=== PATIENT | female | born 2000 | race Caucasian/White ===

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

== ENCOUNTER 2022-01-01 12:24 | Outpatient (CLI) | payer BC, SELFPAY ==
--- NOTE | 2022-01-01 12:32 | XR_ITS ---
WS: [id number] KUB, AP view, 01/01/2022 Clinical Data: RECURRENT KIDNEY STONES Comparison: KUB, 06/28/2021. Findings: No abnormal intraabdominal masses or calcifications are seen. There is no dilatated small bowel or ev idence of obstruction. Fecal material and colon gas obscure detail over both kidneys. XR/XR KUB [id number] Impression: Negative KUB.
== END 2022-01-01 12:25 | disposition home or self-care (01) ==
LOC: RAD 12:29
PROVIDERS: PCP Family Medicine; Visit Provider Urology
DX: N20.0 Calculus of kidney (principal)
CPT/HCPCS: 74018; 81003

== ENCOUNTER → 2022-07-12 12:25 | Outpatient (BNVA) | payer BC, SELFPAY | PROVIDERS: PCP Family Medicine; Visit Provider Family Medicine | DX: N64.3 Galactorrhea not associated with childbirth (principal) | CPT/HCPCS: 84146 ==

== ENCOUNTER → 2022-09-10 13:23 | Outpatient (BNVA) | payer OTHER, SELFPAY | PROVIDERS: PCP Family Medicine; Visit Provider Nurse Practitioner | DX: F41.1 Generalized anxiety disorder (principal) | CPT/HCPCS: 80061; 83036 ==

== ENCOUNTER 2022-10-13 11:46 | Emergency (ER) | payer BC, MEDICAID, SELFPAY ==
[2022-09-25 09:38] VITALS: BP 130/78; BMI 35.7
[2022-10-13 11:50] VITALS: BP 120/70; PULSE 82; RESP 24; TEMP 36.4; O2SAT 100
[2022-10-13 14:14] VITALS: BP 140/80; PULSE 64; RESP 14; O2SAT 98
--- NOTE | 2022-10-13 14:25 | ED_ITS ---
HPI - Abdominal Pain General: Chief Complaint: Abdominal Pain Stated Complaint: Left side pain Time Seen by Provider: 10/13/22 14:25 History of Present Illness: Hortensia Sauceda is a 22-year-old female presenting to the emergency department due to left sided abdominal pain. Onset of symptoms was approximately 3 hours ago and acute without known specific provoking factor. Describes it as sharp and stabbing. Unrelenting and severe. 1 episode associated nausea and vomiting likely secondary to pain. Reports this location feels somewhat different than prior kidney stones. No history of requiring operative intervention for kidney stone. No other specific changes in health, exacerbating, or alleviating factors identified. Onset (ago): hour(s) Pain Consistency: constant Location: LUQ and L flank Severity: severe Quality: stabbing and sharp Radiation: none Migration to: no migration Exacerbating factors: nothing Relieving factors: nothing Associated Symptoms: Reports nausea and vomiting Related Data: Date of Last Menstrual Period: 10/15/21 (Has really irregular and sporadic periods) Review of Systems General: Reports: 10 or more systems reviewed and unremarkable except in HPI and below GI: Reports: nausea and vomiting PFSH ED PFSH: Medical History Generalized anxiety disorder Major depressive disorder, recurrent, moderate No pertinent past medical history Post-traumatic stress disorder, unspecified Psychiatric care Recurrent UTI Urolithiasis Multi stone former. Surgical History No pertinent past surgical history Family History Father Diabetes Hypertension Lung disease Sister PCOS (polycystic ovarian syndrome) Social History Smoking and tobacco status: current every day smoker cigarettes Packs smoked per day: 5 Years cigarettes smoked: 2 and e-cigarettes E-Cigarette Details: with nicotine E-cig/vape details: takes a month to go through a pod Quit status (tobacco): not considering quitting Second hand smoke exposure: Yes Alcohol intake: current Alcohol intake frequency: few times a month Alcohol type: hard liquor Adopted: No Caregiver/support person: No Lives independently: Yes Household members: significant other and family Housing: House Marital status: Single Number of children: 0 Highest education level completed: 12th Grade, No Diploma service: No Current occupational status: unemployed Current occupational exposures/hazards: No Pets and animals: Yes Pets & animals: cat(s) and dog(s) History of recent travel: No Leisure activites: art, music, reading and other Leisure activities details: social media Sexually active: Yes Current gender identity: Genderqueer- Neither Male or Female Shelby/Christianity: Roman Special shelby needs: No Agree to transfusion: Yes Financial difficulty paying for basics: Hard Female Reproductive History: Date of last menstrual period: 10/15/21 (Has really irregular and sporadic periods) Spontaneous abortions: No Physical Exam Const: COMMON NORMALS: alert GENERAL APPEARANCE: cooperative, well developed and in distress (due to pain) HENMT: COMMON NORMALS: normocephalic and atraumatic HEAD & SCALP: normocephalic and atraumatic THROAT: posterior oropharynx normal Eye: COMMON NORMALS: conjunctivae normal CONJUNCTIVA: Yes conjunctivae norm al SCLERA: sclerae normal Neck/C-Spine: COMMON NORMALS: supple GENERAL: Yes trachea midline Resp: COMMON NORMALS: clear to auscultation bilaterally EFFORT & INSPECTION: Yes able to speak in complete sentences AUSCULTATION: clear to auscultation bilaterally Cardio: COMMON NORMALS: regular rate and regular rhythm RATE: regular rate RHYTHM: regular rhythm GI: COMMON NORMALS: Soft to palpation PALPATION: Yes Soft to palpation, Yes Tenderness to palpation present (GI), No Guarding due to palpation present (GI) and No Rigid due to palpation Extremity: GENERAL: Yes normal exam except as noted and No edema Neuro: COMMON NORMALS: moves all extremities SENSORIUM/ORIENTATION: Yes alert and No Orientation impaired Psych: COMMON NORMALS: mental status grossly normal and Normal thought process present THOUGHT PROCESS: Normal thought process present Course Vital Signs: Vital signs: Vital Signs Temperature 97.6 F 10/13/22 11:50 Pulse Rate 64 10/13/22 14:14 Respiratory Rate 14 10/13/22 14:14 Blood Pressure 124/72 10/13/22 17:30 Pulse Oximetry 98 10/13/22 14:14 Oxygen Delivery Me thod 10/13/22 14:14 MDM - Abdominal Pain Medical Decision Making 22-year-old female presenting to the emergency department with left-sided pain which was acute in onset. Nontoxic on exam however uncomfortable due to pain. No significant hematologic abnormality. Metabolic panel with mild dehydration likely. Urinalysis out evidence of infection, hematuria is present. Initially started imaging with ultrasound which only shows mild left pelviectasis and calyceal lithiasis. Upon reassessment patient continued to ovalle ve discomfort and therefore CT ordered after discussion of risk benefits. CT shows mild left hydronephrosis with perinephric edema and 4 mm calculus in the region of the UPJ. During ED course patient treated with fluids, morphine, Flomax, Zofran with improvement. Oxycodone ordered as well. Patient symptoms improved upon discharge. Most likely cause of patient symptoms is ureterolithiasis. Plan to have follow- up with urology. The results of ED evaluation were discussed with the patient including prescriptions and/or symptomatic cares (if applicable) including appropriate and responsible use, followup plan, and return precautions. The patient verbalized understanding and felt safe for discharge. Medical Records I reviewed the patient's medical records. Lab Data I reviewed the patient's lab results. 10/13/22 15:15 10/13/22 15:15 Labs/Radiology: Radiology Impressions Renal Ultrasound 10/13/22 15:28 IMPRESSION: 1. Mild left pelvicaliectasis. 2. Left renal calyceal lithiasis. Abdomen/Pelvis CT 10/13/22 16:34 IMPRESSION: 1. Mild left-sided hydronephrosis and perinephric edema, secondary to a 4 mm calculus in the region of the UPJ. 2. Additional findings, as above. Laboratory Results WBC 11.9 10^3/uL (4.5-13.0) 10/13/22 15:15 RBC 4.98 10^6/uL (4.1-5.3) 10/13/22 15:15 Hgb 14.0 g/dL (11.5-15.3) 10/13/22 15:15 Hct 41.1 % (37.0-47.0) 10/13/22 15:15 MCV 82.5 fl (81-99) 10/13/22 15:15 MCH 28.1 pg (28.0-34.0) 10/13/22 15:15 MCHC 34.1 g/dL (30.0-36.0) 10/13/22 15:15 RDW 13.5 % (12.1-15.1) 10/13/22 15:15 Plt Count 377 10^3/cmm (130-400) 10/13/22 15:15 MPV 8.8 fL (7.4-10.4) 10/13/22 15:15 Neut % (Auto) 85.0 % 10/13/22 15:15 Lymph % (Auto) 9.3 % 10/13/22 15:15 [place] % (Auto) 5.0 % 10/13/22 15:15 Eos % (Auto) 0.2 % 10/13/22 15:15 Baso % (Auto) 0.2 % 10/13/22 15:15 Neut # (Auto) 10.11 10^3/uL (1.8-8.0) H 10/13/22 15:15 Lymph # (Auto) 1.1 10^3/uL (1.5-6.5) L 10/13/22 15:15 [place] # (Auto) 0.6 10^3/uL (0.2-0.9) 10/13/22 15:15 Eos # (Auto) 0.0 10^3/uL (0.0-0.8) 10/13/22 15:15 Baso # (Auto) 0.0 10^3/uL (0.0-0.1) 10/13/22 15:15 Nucleated RBC % (auto) 0 % 10/13/22 15:15 Nucleated RBCs # 0.0 /100WBC 10/13/22 15:15 Sodium 128 mmol/L (136-145) L 10/13/22 15:15 Potassium 3.6 mmol/L (3.5-5.1) 10/13/22 15:15 Chloride 96 mmol/L (98-107) L 10/13/22 15:15 Carbon Dioxide 21 mmol/L (22-29) L 10/13/22 15:15 Anion Gap 14.6 (5-19) 10/13/22 15:15 BUN 11 mg/dL (6-20) 10/13/22 15:15 Creatinine 0.9 mg/dL (0.5-0.9) 10/13/22 15:15 GFR Calculation 79.8 mL/min (90-130) L 10/13/22 15:15 Glucose 112 mg/dL (65-115) 10/13/22 15:15 Calculated Osmolality 266 mOsm/kg (285-295) L 10/13/22 15:15 Calcium 9.3 mg/dL (8.5-10.5) 10/13/22 15:15 Total Bilirubin 0.2 mg/dL (0.15-1.2) 10/13/22 15:15 AST 18 U/L (0-32) 10/13/22 15:15 ALT 18 U/L (0-33) 10/13/22 15:15 Alkaline Phosphatase 134 U/L (35-105) H 10/13/22 15:15 Total Protein 8.1 g/dL (6.6-8.7) 10/13/22 15:15 Albumin 4.5 g/dL (3.5-5.2) 10/13/22 15:15 Globulin 3.6 g/dL (1.3-4.6) 10/13/22 15:15 Lipase 29 U/L (13-60) 10/13/22 15:15 HCG, Qual Negative (Negative) 10/13/22 14:37 Urine Color Yellow (Yellow) 10/13/22 14:37 Urine Appearance Hazy (CLEAR) A 10/13/22 14:37 Urine pH 5 (5-7) 10/13/22 14:37 Ur Specific Moro 1.025 (1.005-1.030) 10/13/22 14:37 Urine Protein 2+ (Negative) H 10/13/22 14:37 Urine Glucose (UA) Norm (Normal) 10/13/22 14:37 Urine Ketones 1+ (Negative) H 10/13/22 14:37 Urine Blood 3+ (Negative) H 10/13/22 14:37 Urine Nitrate Negative (Negative) 10/13/22 14:37 Urine Bilirubin Neg (Negative) 10/13/22 14:37 Urine Urobilinogen Neg mg/dL (Negative) 10/13/22 14:37 Ur Leukocyte Esterase Trace (Negative) H 10/13/22 14:37 Urine RBC >100 /hpf (0-2) H 10/13/22 14:37 Urine WBC None /hpf (0-5) 10/13/22 14:37 Ur Squamous Epith Cells 0-4 /hpf (0-5) H 10/13/22 14:37 Amorphous Sediment Not Reportable 10/13/22 14:37 Urine Bacteria None /hpf (NONE) 10/13/22 14:37 Urine Yeast 2+ /hpf H 10/13/22 14:37 Discharge Plan Discharge Patient Disposition: Home Clinical Impression: Ureterolithiasis Condition: Stable Prescriptions: New ondansetron 4 mg tablet,disintegrating 4 mg PO Q8H PRN (Reason: nausea and vomiting) Qty: 15 0RF oxycodone 5 mg tablet 5 mg PO Q4H PRN (Reason: pain) Qty: 10 0RF tamsulosin [Flomax] 0.4 mg capsule 0.4 mg PO Q24H Qty: 30 0RF No Action hydroxyzine pamoate 25 mg capsule 50 mg PO Q6H PRN (Reason: Anxiety) 30 Days Qty: 120 2RF fluoxetine 20 mg capsule 20 mg PO DAILY 30 Days Qty: 30 2RF buspirone 10 mg tablet 15 mg PO BID 30 Days Qty: 90 2RF acetaminophen [Tylenol] 325 mg capsule 325 mg PO QID PRN (Reason: Pain) Discharge Orders: Discharge ED (Routine); Ordered 10/13/22 Ordered By: Jaime Rowe Referrals: Loretta Paredes FNP [Primary Care Provider] - Discharge Diet: Usual diet Discharge Activity: Increase activity as tolerated Patient Instructions: Tamsulosin (By mouth), Ureteral Stones (ED), Opioid Safety, Pain Management Activity Restrictions/Additional Instructions: Thank you for visiting the emergency department. You were seen and evaluated for abdominal pain. The likely cause of the symptoms is a 4 mm stone in the region of the left ureteropelvic junction. This will be treated with pain medication, will also prescribe antinausea medication, and Flomax to increase likelihood of passage. You may use [id number] medications such as acetaminophen and ibuprofen for pain however please do not exceed the daily recommended dosage as listed on the packaging and please keep in mind that many namebrand medications contain the same active ingredients. Please follow-up with urology. Return to the emergency department for uncontrolled symptoms, fevers, infectious symptoms, or anything else that you are concerned about a feel needs emergency department evaluation. Coding Level of Care Code ED Religion Department Chair for Maxine Marrufo
[2022-10-13 15:11] LABS: HCG Qualitative Urine. Negative (Negative)
[2022-10-13 15:12] LABS: Add Urine Microscopic? YES; Bilirubin Urine Neg (Negative); Blood Urine 3+ (Negative); Glucose Urine UA Norm (Normal); Ketones Urine 1+ (Negative); Leukocyte Esterase Urine Trace (Negative); Nitrate Urine Negative (Negative); Protein Urine 2+ (Negative); Specific Gravity, Urine 1.025 (1.005-1.030); Urine Appearance Hazy (CLEAR); Urine Color Yellow (Yellow); Urobilinogen Urine Neg (Negative); pH Urine 5 (5-7)
[2022-10-13 15:24] LABS: Basophils % 0.2 %; Eosinophils % 0.2 %; Hematocrit 41.1 % (37.0-47.0); Lymphocytes # 1.1 10^3/uL (1.5-6.5); Lymphocytes % 9.3 %; Mean Corpuscular HGB Conc 34.1 g/dL (30.0-36.0); Mean Corpuscular Hemoglobin 28.1 pg (28.0-34.0); Mean Corpuscular Volume 82.5 fl (81-99); Mean Platelet Volume 8.8 fL (7.4-10.4); Monocytes # 0.6 10^3/uL (0.2-0.9); Neutrophils # 10.11 10^3/uL (1.8-8.0); Nucleated Red Blood Cells % 0 %; Platelet Count 377 10^3/cmm (130-400); Red Blood Count 4.98 10^6/uL (4.1-5.3); Red Cell Distribution Width 13.5 % (12.1-15.1); White Blood Count 11.9 10^3/uL (4.5-13.0)
--- NOTE | 2022-10-13 15:28 | USR_ITS ---
PROCEDURE INFORMATION: Exam: US Retroperitoneal Complete, Kidneys Aorta IVC. Exam date and time: 10/13/2022 3:56 PM Age: 22 years old Clinical indication: Abdominal pain; Flank; Left upper quadrant (luq); Additional info: L flank pain, hematuria TECHNIQUE: Imaging protocol: Real-time ultrasound of the retroperitoneum with image documentation. Complete exam. COMPARISON: CT abdomen pelvis wo con [id number] 05/09/2018 7:27 AM FINDINGS: Right kidney: The right kidney measures 9.4 x 4.2 x 4.6 cm. Unremarkable. A brief color Doppler examination of the right kidney was performed showing normal color shifts. Left kidney: Mild left renal pelvicaliectasis. Left renal echogenic reflectors suggesting calyceal lithiasis. The left kidney measures 9.9 x 5.4 x 5.3 cm. A brief color Doppler examination of the left kidney was performed showing normal color shifts. Aorta: The mid abdominal aorta measures 1.5 cm. No aneurysm as visualized. Common iliac arteries: Not imaged. Inferior vena cava: Unremarkable as visualized (midportion). US/US renal BI* [id number] IMPRESSION: 1. Mild left pelvicaliectasis. 2. Left renal calyceal lithiasis.
[2022-10-13 15:31] LABS: Add Urine Culture? Yes; RBC Urine >100 /hpf (0-2); Squamous Epithelial Cell Urine 0-4 /hpf (0-5)
[2022-10-13] MEDS: morphine 4 mg/mL SDV 1 mL IVP ×2 (15:39→17:22)
[2022-10-13] MEDS: sodium chloride 0.9% 1,000 ML 999 ML IV (15:39)
[2022-10-13] MEDS: ondansetron 2 mg/ML SDV 2 mL 4 MG IVP (15:43)
[2022-10-13 15:46] LABS: Alanine Aminotransferase 18 U/L (0-33); Albumin Level 4.5 g/dL (3.5-5.2); Alkaline Phosphatase 134 U/L (35-105); Anion Gap 14.6 (5-19); Aspartate Amino Transferase 18 U/L (0-32); Blood Urea Nitrogen 11 mg/dL (6-20); Calcium 9.3 mg/dL (8.5-10.5); Carbon Dioxide 21 mmol/L (22-29); Chloride 96 mmol/L (98-107); Globulin 3.6 g/dL (1.3-4.6); Glomerular Filtration Rate 79.8 mL/min (90-130); Glucose 112 mg/dL (65-115); Lipase 29 U/L (13-60); Osmolality Calculated 266 mOsm/kg (285-295); Potassium 3.6 mmol/L (3.5-5.1); Sodium 128 mmol/L (136-145); Total Bilirubin 0.2 mg/dL (0.15-1.2); Total Protein 8.1 g/dL (6.6-8.7)
[2022-10-13 16:12] VITALS: BP 142/83
[2022-10-13 16:30] VITALS: BP 138/84
--- NOTE | 2022-10-13 16:34 | CTR_ITS ---
PROCEDURE INFORMATION: Exam: CT Abdomen And Pelvis Without Contrast Exam date and time: 10/13/2022 4:40 PM Age: 22 years old Clinical indication: Abdominal pain; Flank; Left; Additional info: L flank pain, hematuria TECHNIQUE: Imaging protocol: Computed tomography of the abdomen and pelvis without contrast. Axial, coronal and sagittal reformatted images were created and reviewed. Radiation optimization: All CT scans at this facility use at least one of these dose optimization techniques: automated exposure control; mA and/or kV adjustment per patient size (includes targeted exams where dose is matched to clinical indication); or iterative reconstruction. COMPARISON: CT kidney stone [id number] 11/03/2018 11:00 PM RADIATION DOSE METRICS: Total DLP (mGy-cm): 776.94 FINDINGS: Tubes, catheters and devices: Pessary in place. Liver: Unremarkable. Gallbladder and bile ducts: No radiodense gallstones. No biliary ductal dilatation. Pancreas: Unremarkable. Spleen: Unremarkable. Adrenal glands: Normal. No mass. Kidneys and ureters: Mild left-sided hydronephrosis and perinephric edema, secondary to a 4 mm calculus in the region of the UPJ (axial image 95 and coronal image 67). Nonobstructing bilateral renal calculi. Stomach and bowel: No bowel wall thickening. No obstruction. No pneumatosis. Appendix: Normal. Intraperitoneal space: Trace nonspecific free pelvic fluid, likely physiologic. No organized fluid collection. No free air. Vasculature: Unremarkable. No aneurysm. Lymph nodes: No pathologically enlarged lymph nodes. Urinary bladder: Unremarkable as visualized. Reproductive: Unremarkable. Bones/joints: No acute osseous abnormality. Soft tissues: Unremarkable. CT/CT kidney stone [id number] IMPRESSION: 1. Mild left-sided hydronephrosis and perinephric edema, secondary to a 4 mm calculus in the region of the UPJ. 2. Additional findings, as above.
[2022-10-13 17:00] VITALS: BP 140/60
[2022-10-13] MEDS: tamsulosin 0.4 mg Capsule PO (17:22)
[2022-10-13 17:30] VITALS: BP 124/72
== END 2022-10-13 17:30 | disposition home or self-care (01) ==
PROVIDERS: Emergency Provider Emergency Medicine; PCP Nurse Practitioner Family
DX: N20.1 Calculus of ureter (principal)
CPT/HCPCS: 74176; 76770; 80053; 81001; 81025; 83690; 85025; 87086; 96361; 96374; 96375; 96376; 99285; J2270; J2405; J7030

== ENCOUNTER 2022-10-21 06:53 | Outpatient (CLI) | payer BC, SELFPAY ==
[2022-09-25 09:38] VITALS: BP 130/78; BMI 35.7
--- NOTE | 2022-10-21 07:16 | XR_ITS ---
WS: [id number] EXAMINATION: XR KUB [id number] HISTORY: abdominal pain ORDER DATE: 10/21/2022 7:17 AM FINDINGS/IMPRESSION: There is a nonspecific colonic gas pattern with scattered fecal content and gas. There is no sign of significant small bowel dilation. No pathologic abdominal calcification is seen. No changes noted c ompared with the prior exam.
== END 2022-10-21 06:54 | disposition home or self-care (01) ==
PROVIDERS: PCP Nurse Practitioner Family; Visit Provider Urology
DX: N20.0 Calculus of kidney (principal); N39.0 Urinary tract infection, site not specified
CPT/HCPCS: 74018; 81003

== ENCOUNTER 2022-10-23 07:01 | Day surgery (SDC) | payer BC, SELFPAY ==
[2022-09-25 09:38] VITALS: BP 130/78; BMI 35.7
[2022-10-22 12:52] VITALS: BMI 34.7
[2022-10-23] VITALS (7 sets, daily range): BP systolic 101–141; BP diastolic 61–93; PULSE 56–105; RESP 16–18; TEMP 36.3–36.7; O2SAT 96–100
--- NOTE | 2022-10-23 06:03 | P.HPUD_ITS ---
Surgery/Procedure H&P Update DATE OF PROCEDURE: October 23, 2022 DATE H&P PERFORMED: 10/21/22 H&P UPDATE INFORMATION: I have reviewed H&P completed within last 30 days, I have examined patient prior to procedure, No changes to prior documentation and H&P is in [facility] EMR on date indicated CHANGES TO PREVIOUS DOCUMENTATION: KUB shows the stone in roughly the same position as it was previously. Reviewed with the mother and the patient important details for this procedure. They want to proceed as scheduled PLANNED PROCEDURE: Operation Date: 10/23/22 08:35 Proposed Procedures p Cystoscopy, Left: Retrograde, ureteroscopy, laser, stent. [id number], [id number], 78962 modifier 26 N20.2(Not Applicable) - Guille Rosenthal MD s Retrograde Pyelogram(Left) - MD effie Wright Ureteroscopy(Left) - MD effie Wright Laser Lithotripsy(Left) - MD effie Wright Ureteral Stent Placement(Left) - Guille Rosenthal MD
--- NOTE | 2022-10-23 07:03 | SC_ITS ---
WS: [id number] EXAMINATION: C-arm FL for Urology REASON FOR EXAM: Left ureteroscopy COMPARISON: None available. ORDER DATE: 10/23/2022 7:03 AM FINDINGS: Single view is demonstrating some contrast opacifying dilated appearing calyces in the upper left kid fran. The proximal portion of a ureteral stent is demonstrated nearby. SC/C-arm FL for Urology IMPRESSION: C-arm view for interpretation as above.
--- NOTE | 2022-10-23 07:03 | XR_ITS ---
WS: [id number] EXAMINATION: XR KUB [id number] REASON FOR EXAM: Preop left ureteroscopy COMPARISON: 10/21/2022 ORDER DATE: 10/23/2022 7:03 AM FINDINGS: There is a nonspecific colonic gas pattern with scattered fecal content and gas. There is no sign of significant small bowel dilation. A 3 mm calculus superimposes the mid left kidney. XR/XR KUB [id number] IMPRESSION: Small left renal calculus
[2022-10-23] MEDS: sodium chloride 0.9% 1,000 ML 30 ML IV (08:00)
[2022-10-23 08:11] LABS: OR HCG Qualitative Urine Negative (Negative)
--- NOTE | 2022-10-23 08:51 | P.OP_ITS ---
Operative Report Date of procedure: October 23, 2022 Pre-op diagnosis: Refractory left proximal ureteral stone Post-op diagnosis: Refractory left proximal ureteral stone Procedure done: 1. Cystoscopy, LEFT retrograde ureteropyelogram 2. LEFT ureteroscopy 3. Left ureteral stent placement (6 Vincentian by 24 cm double-pigtail without string) Implants: Left ureteral stent Specimens removed/disposition: Stone fragments Pathology: Stone fragments Surgeon: Ariadna Estimated blood loss: Minimal Urine output: Not measured Complications: None Findings: Anesthesia: General Condition: Stable Disposition: PACU Intraoperative findings: * Small stone in the expected position in the proximal ureter just below the UPJ * Stone completely fragmented into sand sized pieces with a 200 ?m thulium superpulse laser fiber * 6 Vincentian by 24 cm double-pigtail stent left indwelling. No string. Brief History: Hortensia is a very pleasant 22-year-old who has been diagnosed with a small left proximal ureteral stone that has failed to progress over conservative course of management. Typical renal colicky symptoms. No concern for infection. Ultimately we elected endoscopy for initial treatment of the stone after thorough discussion of all the options and alternatives including benefits and risks potential complications. Procedure: After routine preoperative evaluation examination and obtaining of informed consent she was taken to the operating suite on 10/23/2022 where general anesthesia was administered without difficulty after appropriate timeout was performed, SCDs confirmed to be functioning, preoperative antibiotics administered, beta-denton protocol confirmed. Prepped and draped in usual sterile fashion in dorsolithotomy position paying careful attention to avoiding pressure points. 21 Vincentian cystoscope with 30 degree lens was introduced into the urethra meatus and advanced into the bladder without difficulty. The bladder was systematically examined. No stone was seen. Stone could be identified on fluoroscopic examination of the proximal ureteral area. An 8 Vincentian cone-tip catheter was intubated into the left ureteral orifice for LEFT ureteropyelogram. Findings: The ureter appeared to be normal throughout. There was a filling defect in the left proximal ureter consistent with a 3 mm stone identified previously. The ureter proximal to that point was somewhat dilated as was the pyelocalyceal system. No other filling defects noted. A flexible tip guidewire was then advanced up the left ureter bypassing the stone in the distal ureter was then dilated with a 15 Vincentian 4 cm balloon with no waist. A second guidewire was passed with the first wire secured to the drapes as a safety wire and a 7 Vincentian offset semirigid ureteroscope was then advanced up the left ureter over the second wire. The ureter was mildly tight but the scope was generally easily passed up to the stone. This was not a traumatic passage. The stone was encountered in its expected position there was moderate inflammatory changes around the stone. It was rather spiculated and appeared to be somewhat embedded on the medial aspect of the ureter. A 200 ?m thulium superpulse laser fiber was utilized to fragment the stone completely into very small pieces and sand. The specimens were too small to basket. The scope was removed with direct visualization of the ureter which was atra umatic. The cystoscope was then backloaded over the guidewire and a 6 Vincentian by 24 cm double-pigtail stent was advanced over the guidewire through the cystoscope into appropriate position as confirmed via fluoroscopy and cystoscopy. Stent was confirmed to be working. There were some tiny sand particles in the bladder but again too small to collect easily. Bladder was flushed free and the procedure was completed. Some grit could be felt in the screen but it was not collectible. Procedure was completed. She tolerated well without complications. Awakened in the operating room and returned to the care of room in stable condition. PLANS: 1. Anticipate discharge from outpatient surgery 2. Follow-up next week for cystoscopy and stent removal.
[2022-10-23] MEDS: levofloxacin-dextrose 5 % 500 MG/100 ML PREMIX 100 MG IV (08:58)
--- NOTE | 2022-10-23 09:27 | P.ANESASSM_ITS ---
Pre-Anesthetic Assessment Height/Weight: Height 1.57 m Weight 86.183 kg Temp Pulse Resp BP Pulse Ox O2 Del Method 98.1 F 85 18 114/80 96 10/23/22 07:45 10/23/22 07:45 10/23/22 07:45 10/23/22 07:45 10/23/22 07:45 10/23/22 07:45 Preop Diagnosis: Refractory left proximal ureteral stone Operation Date: 10/23/22 08:35 Proposed Procedures p Cystoscopy, Left: Retrograde, ureteroscopy, laser, stent. 56695, 51081, 84146 modifier 26 N20.2(Not Applicable) - MD effie Wright Retrograde Pyelogram(Left) - MD effie Wright Ureteroscopy(Left) - MD effie Wright Laser Lithotripsy(Left) - MD effie Wright Ureteral Stent Placement(Left) - Guille Rosenthal MD Familial anesthetic complications: none Was Beta Mathew taken within 24 hours: N/A Was Clonidine taken within 24 hours: N/A Last intake: Intake Last Liquid Date 10/22/22 Last Liquid Time 23:30 Last Solid Date 10/22/22 Last Solid Time 23:30 Social No alcohol and No tobacco Exam alert, oriented x 3, clear to auscultation bilaterally and regular rate & rhythm Airway Submandibular: within normal limits Cervical ROM: within normal limits Mallampati: Class II Dentition: full Metabolic Morbid Obesity Neuropsych Anxiety and Depression Anesthetic Plan ASA status: 2 Anesthesia: General Medications/Allergies Home Medications Medication Instructions Recorded Confirmed Last Taken Type buspirone 10 mg tablet 15 mg PO BID 30 days #90 tabs 07/08/22 10/22/22 10/22/22 Rx fluoxetine 20 mg capsule 20 mg PO DAILY 30 days #30 caps 07/08/22 10/22/22 10/15/22 Rx hydroxyzine pamoate 25 mg capsule 50 mg PO Q6H PRN Anxiety 30 days 07/08/22 10/22/22 10/15/22 Rx #120 caps ondansetron 4 mg disintegrating 4 mg PO Q8H PRN nausea and 10/13/22 10/22/22 10/22/22 Rx tablet vomiting #15 tabs oxycodone 5 mg tablet 5 mg PO Q4H PRN pain #10 tabs 10/13/22 10/22/22 10/20/22 Rx tamsulosin 0.4 mg capsule (Flomax) 0.4 mg PO Q24H #30 caps 10/13/22 10/22/22 10/21/22 Rx acetaminophen 325 mg capsule 325 mg PO QID PRN Pain 10/21/22 10/22/22 10/22/22 History (Tylenol) Allergies Allergy/AdvReac Type Severity Reaction Status Date / Time kale Allergy Intermediate ALGY-Difficulty Uncoded 10/23/22 07:43 Swallowing PFSH Anesthesia Medical History Generalized anxiety disorder Major depressive disorder, recurrent, moderate No pertinent past medical history Post-traumatic stress disorder, unspecified Psychiatric care Recurrent UTI Urolithiasis Multi stone former. Surgical History No pertinent past surgical history Family History Father Diabetes Hypertension Lung disease Sister PCOS (polycystic ovarian syndrome) Social History Smoking and tobacco status: current every day smoker cigarettes Packs smoked per day: 5 Years cigarettes smoked: 2 and e-cigarettes E-Cigarette Details: with nicotine E-cig/vape details: takes a month to go through a pod Quit status (tobacco): not considering quitting Second hand smoke exposure: Yes Alcohol intake: current Alcohol intake frequency: few times a month Alcohol type: hard liquor Adopted: No Caregiver/support person: No Lives independently: Yes Household members: significant other and family Housing: House Marital status: Single Number of children: 0 Highest education level completed: 12th Grade, No Diploma service: No Current occupational status: unemployed Current occupational exposures/hazards: No Pets and animals: Yes Pets & animals: cat(s) and dog(s) History of recent travel: No Leisure activites: art, music, reading and other Leisure activities details: social media Sexually active: Yes Current gender identity: Genderqueer- Neither Male or Female Shelby/Yazdanism: Jessie Special shelby needs: No Agree to transfusion: Yes Financial difficulty paying for basics: Hard Female Reproductive History Date of last menstrual period: 10/15/21 (Has really irregular and sporadic periods) Spontaneous abortions: No Data Anesthesia Cardiac Studies: No Data to Display
--- NOTE | 2022-10-23 09:33 | SUR.OPER ---
0803 left upper lobe (helix) ear piercing, round silver looking metal removed intact with permission from pt. given to pt family (mother) at pt direction.
== END 2022-10-23 11:10 | disposition home or self-care (01) ==
PROVIDERS: Anesthesiology; PCP Nurse Practitioner Family; Visit Provider Urology
PROC: 0TJB8ZZ Inspection of Bladder, Via Natural or Artificial Opening Endoscopic (ICD-10-PCS; CPT 52000; principal; 2022-10-23 08:25)
PROC: (CPT 74420; 2022-10-23 08:25)
PROC: (CPT 52356; 2022-10-23 08:25)
PROC: (CPT 50605; 2022-10-23 08:25)
PROC: 0TJ98ZZ Inspection of Ureter, Via Natural or Artificial Opening Endoscopic (ICD-10-PCS; CPT 52351; 2022-10-23 08:25)
DX: N20.1 Calculus of ureter (principal); E66.01 Morbid (severe) obesity due to excess calories; Z68.34 Body mass index [BMI] 34.0-34.9, adult; F17.210 Nicotine dependence, cigarettes, uncomplicated
CPT/HCPCS: 52356; 74018; 76000; 81025; 84703; C2625; J1100; J1956; J2405; J2704; J2710; J3010; J3490; J7030

== ENCOUNTER → 2022-10-30 16:23 | Outpatient (BNVA) | payer BC, MEDICAID, SELFPAY ==
[2022-09-25 09:38] VITALS: BP 130/78; BMI 35.7
== END ==
PROVIDERS: PCP Nurse Practitioner Family; Visit Provider Urology
DX: N20.9 Urinary calculus, unspecified (principal); Z96.0 Presence of urogenital implants
CPT/HCPCS: 52310; 81003

== ENCOUNTER 2023-03-06 12:08 | Emergency (ER) | payer OTHER, MEDICAID, SELFPAY ==
[2023-02-21 11:03] VITALS: BP 130/78; BMI 35.7
[2023-03-06 12:11] VITALS: BP 139/77; PULSE 81; RESP 18; TEMP 36.7; O2SAT 98
--- NOTE | 2023-03-06 12:24 | ED_ITS ---
HPI - Fall General: Chief Complaint: Fall Stated Complaint: knee lac Time Seen by Provider: 03/06/23 12:16 Source: patient Mode of arrival: ambulatory Limitations: no limitations History of Present Illness: Patient is a 22-year-old female presents to ED today with a complaint of right knee pain/laceration that she sustained just prior to arrival after tripping while she was running and landing onto the knee. Patient states she is able to bear weight on the extremity. She states she sustained some minor abrasions to her bilateral palms but is not having pain here. She believes her tetanus is up -to-date. complaint: fall Onset (ago): hour(s) Fall from: standing Fall witnessed: yes, by family Place fall occurred: other (outdoor park) Loss of consciousness: None Prolonged down time: no Symptoms prior to fall: none Context: tripped/slipped Location of injury - extremities: Right: knee Associated symptoms-after fall: Reports no associated symptoms; Denies neck pain Review of Systems Musc: Reports: joint pain (R knee); Denies: neck pain, back pain, extremity pain, extremity swelling, joint swelling or limited range of motion Skin/Breast: Reports: other (laceration R knee) Neuro: Denies: numbness in extremities or sensory changes PFSH ED PFSH: Medical History Generalized anxiety disorder Major depressive disorder, recurrent, moderate No pertinent past medical history Post-traumatic stress disorder, unspecified Psychiatric care Recurrent UTI Urolithiasis Multi stone former. Surgical History No pertinent past surgical history Family History Father Diabetes Hypertension Lung disease Sister PCOS (polycystic ovarian syndrome) Social History Smoking and tobacco status: current every day smoker cigarettes Packs smoked per day: 5 Years cigarettes smoked: 2 and e-cigarettes E-Cigarette Details: with nicotine E-cig/vape details: takes a month to go through a pod Quit status (tobacco): not considering quitting Second hand smoke exposure: Yes Alcohol intake: current Alcohol intake frequency: few times a month Alcohol type: hard liquor Substance/Drug Use: current Substance/Drug use frequency: daily Adopted: No Caregiver/support person: No Lives independently: Yes Household members: significant other and family Housing: House Marital status: Single Number of children: 0 Highest education level completed: 12th Grade, No Diploma service: No Current occupational status: unemployed Current occupational exposures/hazards: No Pets and animals: Yes Pets & animals: cat(s) and dog(s) Leisure activites: art, music, reading and other Leisure activities details: social media Sexually active: Yes Current gender identity: Genderqueer- Neither Male or Female Shelby/Quaker: Roman Special shelby needs: No Agree to transfusion: Yes Financial difficulty paying for basics: Hard Female Reproductive History: Spontaneous abortions: No Physical Exam Const: COMMON NORMALS: no acute distress, patient oriented x3, no limitations, alert and well nourished GENERAL APPEARANCE: cooperative ORIENTATION/CONSCIOUSNESS: Yes awake, Yes oriented to person, Yes oriented to place and Yes oriented to time HENMT: COMMON NORMALS: normocephalic and atraumatic HEAD & SCALP: normal to inspection, normocephalic and atraumatic Neck/C-Spine: CERVICAL SPINE: No Cervical spine tenderness Extremity: COMMON NORMALS: full ROM, capillary refill normal and no joint enlargement GENERAL: Yes normal exam except as noted RIGHT LOWER EXTREMITY: Yes knee joint (3.0 cm gaping but superficial laceration to R anterior knee joint) Right knee: Yes ROM (normal) and Yes neurovascular exam (normal) Neuro: COMMON NORMALS: patient oriented x3, moves all extremities, no focal motor deficits, no sensory deficits noted and gait normal SENSORIUM/ORIENTATION: Yes alert, Yes oriented to person, Yes oriented to place and Yes oriented to time Skin: TRAUMA: laceration (R knee) Procedures Laceration Laceration 1: Site: lower extremity (R anterior knee) Side (If applicable): right Size (cm): 3.0 Description: linear Depth: simple, single layer Local Anesthetic: lidocaine 1% Amount of anesthesia used (mL): 2.0 Pre-repair: wound explored and irrigated extensively Skin layer closed with: nylon Size (cm): 4-0 Number of sutures: 4 Technique: simple, interrupted Course Vital Signs: Vital signs: Vital Signs Temperature 98.1 F 03/06/23 12:11 Pulse Rate 81 03/06/23 12:11 Respiratory Rate 18 03/06/23 12:11 Blood Pressure 139/77 03/06/23 12:11 Pulse Oximetry 98 03/06/23 12:11 Oxygen Delivery Me thod Room Air 03/06/23 12:11 MDM - Fall Medical Decision Making XR negative-they did comment on a foreign body of the posterior lateral upper calf however patient has no injury here. The laceration was copiously irrigated and repaired as documented. Wound infection precautions discussed for home. Return ED precautions given. Lab Data Radiology Impressions Knee X-Ray 03/06/23 12:31 IMPRESSION: No acute findings. ADDENDUM: 03/06/23 1412 Correction: There is no soft tissue foreign body at the knee. There is a 3 mm radiodense foreign body or calcification in the subcutaneous fat of the posterolateral upper calf visible on frontal and oblique views. Discharge Plan Discharge Patient Disposition: Home Clinical Impression: Fall Qualifiers: Encounter type: initial encounter Qualified Code(s): W19.XXXA - Unspecified fall, initial encounter Laceration of right knee Qualifiers: Encounter type: initial encounter Qualified Code(s): S81.011A - Laceration without foreign body, right knee, initial encounter Abrasion of hand Qualifiers: Encounter type: initial encounter Laterality: unspecified laterality Qualified Code(s): S60.519A - Abrasion of unspecified hand, initial encounter Condition: Stable Prescriptions: No Action acetaminophen [Tylenol] 325 mg capsule 325 mg PO QID PRN (Reason: Pain) fluoxetine 20 mg capsule 20 mg PO DAILY 30 Days Qty: 30 2RF hydroxyzine pamoate 25 mg capsule 50 mg PO Q6H PRN (Reason: Anxiety) 30 Days Qty: 120 2RF buspirone 10 mg tablet 15 mg PO BID 30 Days Qty: 90 2RF Discharge Orders: Discharge ED (Routine); Ordered 03/06/23 Ordered By: Carisa Fuller Referrals: Loretta Paredes FNP [Primary Care Provider] - Patient Instructions: Care For Your Stitches (DC), Laceration (DC) Activity Restrictions/Additional Instructions: Keep wound/laceration clean with warm soap and water twice daily. Monitor for signs of infection such as redness, swelling, increased pain, or drainage. Please seek medical re-evaluation if these occur. If you received sutures today these will need to be removed (unless you were told by the provider that they are absorbable). The provider should have discussed with you the length of time until removal-7 DAYS. Coding Level of Care Code ED Office Technologist for Maxine Marrufo
--- NOTE | 2023-03-06 12:31 | XRR_ITS ---
PROCEDURE INFORMATION: Exam: XR Right Knee Exam date and time: 03/06/2023 12:39 PM Age: 22 years old Clinical indication: Injury or trauma; Other: Laceration; Patella or knee; Right; Foreign body involvement not specified; Additional info: Trauma/injury/laceration TECHNIQUE: Imaging protocol: Radiologic exam of the right knee. Views: 3 views. COMPARISON: No relevant prior studies available. FINDINGS: Bones/joints: Normal. Soft tissues: No radiopaque foreign body. XR/XR knee RT 3V* [id number] IMPRESSION: No acute findings.
== END 2023-03-06 13:17 | disposition home or self-care (01) ==
PROVIDERS: Emergency Provider Physician Assistant; PCP Nurse Practitioner Family
DX: S81.011A Laceration without foreign body, right knee, initial encounter (principal); S60.519A Abrasion of unspecified hand, initial encounter; F17.210 Nicotine dependence, cigarettes, uncomplicated; F17.290 Nicotine dependence, other tobacco product, uncomplicated; W01.0XXA Fall on same level from slipping, tripping and stumbling without subsequent striking against object, initial encounter
CPT/HCPCS: 12002; 73562; 99283

== ENCOUNTER → 2023-08-26 13:09 | Outpatient (BNVA) | payer OTHER, SELFPAY ==
[2023-07-15 08:28] VITALS: BP 130/78; BMI 35.7
== END ==
PROVIDERS: PCP Nurse Practitioner Family; Visit Provider Nurse Practitioner
DX: F41.1 Generalized anxiety disorder (principal)
CPT/HCPCS: 80061; 83036

== ENCOUNTER 2023-09-13 12:46 | Emergency (ER) | payer OTHER, MEDICAID, SELFPAY ==
[2023-09-08 16:53] VITALS: BP 112/65; BMI 28.9
[2023-09-13 12:57] VITALS: BP 130/84; PULSE 69; RESP 18; TEMP 36.8; O2SAT 100
--- NOTE | 2023-09-13 13:26 | CTR_ITS ---
PROCEDURE INFORMATION: Exam: CT Abdomen And Pelvis Without Contrast Exam date and time: 09/13/2023 2:23 PM Age: 23 years old Clinical indication: Abdominal pain; Flank; Left; Additional info: Left flank pain TECHNIQUE: Imaging protocol: Computed tomography of the abdomen and pelvis without contrast. Axial, coronal and sagittal reformatted images were created and reviewed. Radiation optimization: All CT scans at this facility use at least one of these dose optimization techniques: automated exposure control; mA and/or kV adjustment per patient size (includes targeted exams where dose is matched to clinical indication); or iterative reconstruction. REPORTING DATA: Count of CT and Cardiac NM exams in prior 12 months: This patient has received [address] and 0 known cardiac nuclear medicine studies in the 12 months prior to the current study. COMPARISON: CT kidney stone [id number] 10/13/2022 4:40 PM RADIATION DOSE METRICS: Total DLP (mGy-cm): 526.85 FINDINGS: Liver: Unremarkable. Gallbladder and bile ducts: Cholelithiasis. Pancreas: Unremarkable. Spleen: Unremarkable. Adrenal glands: Normal. No mass. Kidneys and ureters: Mild left-sided hydronephrosis, secondary to a 4 mm proximal left ureteral calculus (axial image 85 and coronal image 56). Nonobstructing left renal calculi. Stomach and bowel: No bowel wall thickening. No obstruction. No pneumatosis. Appendix: Normal. Intraperitoneal space: Trace nonspecific free pelvic fluid, likely physiologic. No organized fluid collection. No free air. Vasculature: Unremarkable. No aneurysm. Lymph nodes: No pathologically enlarged lymph nodes. Urinary bladder: Unremarkable as visualized. Reproductive: Unremarkable. Bones/joints: No acute osseous abnormality. Soft tissues: Unremarkable. CT/CT kidney stone [id number] IMPRESSION: 1. Mild left-sided hydronephrosis, secondary to a 4 mm proximal left ureteral calculus. 2. Additional findings, as above.
[2023-09-13] MEDS: ketorolac 30 mg/mL INJ IVP (13:43)
[2023-09-13] MEDS: lactated ringers 1,000 ML 999 ML IV (13:43)
[2023-09-13] MEDS: ondansetron 2 mg/ML SDV 2 mL 4 MG IVP (13:43)
[2023-09-13] MEDS: morphine 4 mg/mL SDV 1 mL IVP (13:43)
[2023-09-13 13:49] LABS: Basophils % 0.4 %; Eosinophils # 0.1 10^3/uL (0.0-0.8); Eosinophils % 1.7 %; Hematocrit 45.6 % (36-47); Lymphocytes # 1.7 10^3/uL (0.8-4.8); Lymphocytes % 32.5 %; Mean Corpuscular HGB Conc 33.8 g/dL (30-55); Mean Corpuscular Hemoglobin 28.8 pg (27-33); Mean Corpuscular Volume 85.4 fl (85-98); Mean Platelet Volume 8.8 fL (7.4-10.4); Monocytes # 0.3 10^3/uL (0.2-0.9); Neutrophils # 3.16 10^3/uL (1.8-7.7); Neutrophils % 59.2 %; Nucleated Red Blood Cells % 0 %; Platelet Count 411 10^3/cmm (157-399); Red Blood Count 5.34 10^6/uL (3.85-5.65); Red Cell Distribution Width 13.1 % (12.1-15.1); White Blood Count 5.33 10^3/uL (3.29-11.43)
[2023-09-13 13:56] LABS: Blood Urea Nitrogen 9 mg/dL (6-20); Calcium 10.9 mg/dL (8.5-10.5); Carbon Dioxide 20 mmol/L (22-29); Chloride 105 mmol/L (98-107); Glomerular Filtration Rate 105.6 mL/min (90-130); Glucose 92 mg/dL (65-115); Osmolality Calculated 290 mOsm/kg (285-295); Sodium 141 mmol/L (136-145)
[2023-09-13 14:18] LABS: HCG Qualitative Urine. Negative (Negative)
[2023-09-13 14:21] LABS: Add Urine Microscopic? YES; Bacteria Urine TRACE /hpf; Bilirubin Urine Neg (Negative); Blood Urine 3+ (Negative); Glucose Urine UA Norm (Normal); Ketones Urine Negative (Negative); Leukocyte Esterase Urine Negative (Negative); Nitrate Urine Negative (Negative); Protein Urine Neg (Negative); RBC Urine 0-4 /hpf (0-2); Specific Gravity, Urine 1.005 (1.005-1.030); Squamous Epithelial Cell Urine RARE /hpf (0-5); Urine Appearance Clear (CLEAR); Urine Color Colorless (Yellow); Urobilinogen Urine Norm (Negative); pH Urine 7 (5-7)
[2023-09-13 14:22] LABS: Add Urine Culture? No
--- NOTE | 2023-09-13 15:02 | W.ED.FEMALGU ---
HPI - Female Genitourinary General: Chief complaint: Abdominal Pain Stated complaint: left kidney pain Time Seen by Provider: 09/13/23 12:51 History of Present Illness: This patient is a 23-year-old white female who presents to the emergency department with left flank pain. She states this started at 11 AM today. She does have history of kidney stones. She has not had any associated nausea or vomiting. No fever. No dysuria or hematuria. Other past medical history includes depression and anxiety. She has no surgical history. Review of Systems General: Reports: 10 or more systems reviewed and unremarkable except in HPI and below : Reports: flank pain PFSH ED PFSH: Medical History Generalized anxiety disorder Major depressive disorder, recurrent, moderate No pertinent past medical history Post-traumatic stress disorder, unspecified Psychiatric care Recurrent UTI Urolithiasis Multi stone former. Surgical History No pertinent past surgical history Family History Father Diabetes Hypertension Lung disease Sister PCOS (polycystic ovarian syndrome) Social History Smoking and tobacco/nicotine status: current every day tobacco/nicotine user cigarettes Packs smoked per day: 5 Years cigarettes smoked: 2 and e-cigarettes E-Cigarette Details: e-cigarette and with nicotine E-cig/vape details: takes a month to go through a pod Quit status (tobacco/nicotine): considering quitting Second hand smoke exposure: Yes Alcohol intake: current Alcohol intake frequency: few times a month Alcohol type: hard liquor Substance/Drug Use: current Substance/Drug use frequency: daily Adopted: No Caregiver/support person: No Lives independently: Yes Household members: significant other Housing: Apartment Marital status: Single Number of children: 0 Highest education level completed: 12th Grade, No Diploma service: No Current occupational status: unemployed Current occupational exposures/hazards: No Pets and animals: Yes Pets & animals: dog(s) Leisure activites: art, music, reading and other Leisure activities details: social media Sexually active: Yes Do you think of yourself as: Bisexual Current gender identity: Genderqueer- Neither Male or Female Shelby/Mormonism: Roman Special shelby needs: No Agree to transfusion: Yes Female Reproductive History: Spontaneous abortions: No Physical Exam Const: COMMON NORMALS: no acute distress, patient oriented x3 and no limitations GENERAL APPEARANCE: cooperative and comfortable HENMT: COMMON NORMALS: normocephalic, atraumatic, Normal nasal mucous membranes and turbinates present, moist oral mucous membranes and oropharynx normal HEAD & SCALP: normal to inspection, normocephalic and atraumatic FACE & SINUS: normal facial exam NOSE: Normal nasal mucous membranes and turbinates present Eye: COMMON NORMALS: Equal, round and reactive pupils present, EOMs intact bilaterally and conjunctivae normal GENERAL EYE: appearance normal, both eyes and all related structures CONJUNCTIVA: Yes conjunctivae normal PUPIL: Yes Equal, round and reactive pupils present Neck/C-Spine: COMMON NORMALS: supple and no JVD Chest: COMMONS NORMALS: normal inspection of the chest Resp: COMMON NORMALS: normal respiratory effort and clear to auscultation bilaterally AUSCULTATION: clear to auscultation bilaterally Cardio: COMMON NORMALS: no JVD, regular rate, regular rhythm, No gallops present (Cardio), No murmurs present (Cardio) and No rub (Cardio) RATE: regular rate RHYTHM: regular rhythm GI: COMMON NORMALS: Normal to inspection, nondistended, normoactive bowel sounds present, Soft to palpation and non-tender AUSCULTATION: Yes normoactive bowel sounds PALPATION: Yes Soft to palpation : COMMON NORMALS: Yes no CVA tenderness BLADDER/KIDNEY EXAM: Yes no CVA tenderness Back/Pelvis: COMMON NORMALS: no CVA tenderness and thoracic and lumbar spine normal to inspection Extremity: COMMON NORMALS: normal to inspection Neuro: COMMON NORMALS: patient oriented x3 and CN's II-XII intact bilaterally Psych: COMMON NORMALS: mental status grossly normal, Normal thought process present and cooperative THOUGHT PROCESS: Normal thought process present Skin: COMMON NORMALS: no rashes or lesions noted, turgor normal and no jaundice GENERAL SKIN EXAM: no rashes or lesions noted and turgor normal Course Vital Signs: Vital signs: Vital Signs Temperature 98.2 F 09/13/23 12:57 Pulse Rate 69 09/13/23 12:57 Respiratory Rate 18 09/13/23 12:57 Blood Pressure 130/84 09/13/23 12:57 Pulse Oximetry 100 09/13/23 12:57 Oxygen Delivery Me thod Room Air 09/13/23 12:57 MDM - Female Medical Decision Making Patient was given 1 L bolus of normal saline, 4 mg of Zofran IV, 30 mg of Toradol IV and 4 mg of morphine IV. She is feeling significantly better. CBC and BMP were normal. Urinalysis reveals 3+ blood. test negative. CT scan of the abdomen and pelvis does remit revealed a 4 mm proximal stone with mild hydronephrosis. Results were discussed with the patient. She was discharged in stable condition with prescriptions for hydrocodone, ibuprofen and Flomax. I recommended she follow-up with her primary care provider in 3 days if symptoms have not resolved. At that time she may need referral to urology. Lab Data 09/13/23 13:10 09/13/23 13:10 Radiology Impressions Abdomen/Pelvis CT 09/13/23 13:26 IMPRESSION: 1. Mild left-sided hydronephrosis, secondary to a 4 mm proximal left ureteral calculus. 2. Additional findings, as above. Laboratory Results WBC 5.33 10^3/uL (3.29-11.43) 09/13/23 13:10 RBC 5.34 10^6/uL (3.85-5.65) 09/13/23 13:10 Hgb 15.40 g/dL (11.27-16.99) 09/13/23 13:10 Hct 45.6 % (36-47) 09/13/23 13:10 MCV 85.4 fl (85-98) 09/13/23 13:10 MCH 28.8 pg (27-33) 09/13/23 13:10 MCHC 33.8 g/dL (30-55) 09/13/23 13:10 RDW 13.1 % (12.1-15.1) 09/13/23 13:10 Plt Count 411 10^3/cmm (157-399) H 09/13/23 13:10 MPV 8.8 fL (7.4-10.4) 09/13/23 13:10 Neut % (Auto) 59.2 % 09/13/23 13:10 Lymph % (Auto) 32.5 % 09/13/23 13:10 [place] % (Auto) 6.0 % 09/13/23 13:10 Eos % (Auto) 1.7 % 09/13/23 13:10 Baso % (Auto) 0.4 % 09/13/23 13:10 Neut # (Auto) 3.16 10^3/uL (1.8-7.7) 09/13/23 13:10 Lymph # (Auto) 1.7 10^3/uL (0.8-4.8) 09/13/23 13:10 [place] # (Auto) 0.3 10^3/uL (0.2-0.9) 09/13/23 13:10 Eos # (Auto) 0.1 10^3/uL (0.0-0.8) 09/13/23 13:10 Baso # (Auto) 0.0 10^3/uL (0.0-0.1) 09/13/23 13:10 Nucleated RBC % (auto) 0 % 09/13/23 13:10 Nucleated RBCs # 0.0 /100WBC 09/13/23 13:10 Sodium 141 mmol/L (136-145) 09/13/23 13:10 Potassium 4.0 mmol/L (3.5-5.1) 09/13/23 13:10 Chloride 105 mmol/L (98-107) 09/13/23 13:10 Carbon Dioxide 20 mmol/L (22-29) L 09/13/23 13:10 Anion Gap 20.0 (5-19) H 09/13/23 13:10 BUN 9 mg/dL (6-20) 09/13/23 13:10 Creatinine 0.7 mg/dL (0.5-0.9) 09/13/23 13:10 GFR Calculation 105.6 mL/min (90-130) 09/13/23 13:10 Glucose 92 mg/dL (65-115) 09/13/23 13:10 Calculated Osmolality 290 mOsm/kg (285-295) 09/13/23 13:10 Calcium 10.9 mg/dL (8.5-10.5) H 09/13/23 13:10 HCG, Qual Negative (Negative) 09/13/23 13:10 Urine Color Colorless (Yellow) 09/13/23 13:15 Urine Appearance Clear (CLEAR) 09/13/23 13:15 Urine pH 7 (5-7) 09/13/23 13:15 Ur Specific [place] 1.005 (1.005-1.030) 09/13/23 13:15 Urine Protein Neg (Negative) 09/13/23 13:15 Urine Glucose (UA) Norm (Normal) 09/13/23 13:15 Urine Ketones Negative (Negative) 09/13/23 13:15 Urine Blood 3+ (Negative) H 09/13/23 13:15 Urine Nitrate Negative (Negative) 09/13/23 13:15 Urine Bilirubin Neg (Negative) 09/13/23 13:15 Urine Urobilinogen Norm mg/dL (Negative) 09/13/23 13:15 Ur Leukocyte Esterase Negative (Negative) 09/13/23 13:15 Urine RBC 0-4 /hpf (0-2) H 09/13/23 13:15 Urine WBC None /hpf (0-5) 09/13/23 13:15 Ur Squamous Epith Cells Rare /hpf (0-5) 09/13/23 13:15 Amorphous Sediment Not Reportable 09/13/23 13:15 Urine Bacteria Trace /hpf (NONE) 09/13/23 13:15 All radiology interpretation(s) finalized by discharge Discharge Plan Discharge Patient Disposition: Home Clinical Impression: Calculus of left ureter Condition: Stable Prescriptions: New ibuprofen 800 mg tablet 800 mg PO TID Qty: 30 0RF Flomax 0.4 mg capsule 0.4 mg PO DAILY Qty: 7 0RF hydrocodone-acetaminophen 5-325 mg tablet 1 tab PO Q4H Qty: 30 0RF Discontinued acetaminophen [Tylenol] 325 mg capsule 325 mg PO QID PRN (Reason: Pain) No Action fluoxetine 20 mg capsule 20 mg PO DAILY 30 Days Qty: 30 2RF hydroxyzine pamoate 25 mg capsule 50 mg PO Q6H PRN (Reason: Anxiety) 30 Days Qty: 120 2RF buspirone 10 mg tablet 15 mg PO BID 30 Days Qty: 90 2RF Discharge Orders: Discharge ED (Routine); Ordered 09/13/23 Ordered By: Alfredo Frausto Referrals: Loretta Paredes FNP [Primary Care Provider] - Patient Instructions: Opioid Safety, Pain Management Coding Level of Care Code ED Manager Department for [facility]
[2023-09-13 15:17] VITALS: BP 130/84; PULSE 69; RESP 18; O2SAT 100
== END 2023-09-13 15:19 | disposition home or self-care (01) ==
PROVIDERS: Emergency Provider Emergency Medicine; PCP Nurse Practitioner Family
DX: N13.2 Hydronephrosis with renal and ureteral calculous obstruction (principal); F17.210 Nicotine dependence, cigarettes, uncomplicated; F17.290 Nicotine dependence, other tobacco product, uncomplicated; Z87.442 Personal history of urinary calculi
CPT/HCPCS: 74176; 80048; 81001; 81025; 85025; 96374; 96375; 99285; J1885; J2270; J2405; J7120

== ENCOUNTER → 2024-03-08 09:16 | Outpatient (BNVA) | payer MEDICAID, SELFPAY ==
[2023-09-08 16:53] VITALS: BP 112/65; BMI 28.9
== END ==
PROVIDERS: PCP Nurse Practitioner Family; Visit Provider Nurse Practitioner Family
DX: R09.81 Nasal congestion (principal); J06.9 Acute upper respiratory infection, unspecified
CPT/HCPCS: 87400

== ENCOUNTER 2024-03-24 10:59 | Emergency (ER) | payer MEDICAID, SELFPAY ==
[2023-09-08 16:53] VITALS: BP 112/65; BMI 28.9
[2024-03-24 11:13] VITALS: BP 111/67; PULSE 70; RESP 15; TEMP 36.7; O2SAT 98
--- NOTE | 2024-03-24 12:25 | CT_ITS ---
WS: [id number] CT HEAD NONCONTRAST HISTORY: fall TECHNIQUE: Contiguous axial imaging performed through the brain in 2.5 mm imaging. Bone and soft tiss ue windows. Sagittal and coronal reformats reviewed. All CT scans at [facility] use at least one of these dose optimization techniques: automated exposure control; mA and/or kV adjustment per pa tient size (includes targeted exams where dose is matched to clinical indication); or iterative recon struction. DLP: 992.32 mGy.cm COMPARISON: None available. No acute intracranial hemorrhage, midline shift or mass effect. No atrophy or prior infarcts or herniation. Ventricles: Normal size with no hydrocephalus. Mild ectopia of the cerebellar tonsils. No Chiari malformation. Paranasal sinuses: As visualized are clear. Mastoid air cells: Well pneumatized. Calvarium and scalp: Skull is intact with no soft tissue edema or swelling. CT/CT head wo con* [id number] IMPRESSION: Negative head CT.
--- NOTE | 2024-03-24 12:30 | W.ED.HA ---
HPI - Headache General: Chief Complaint: Headache Stated Complaint: hit head, N/V Time Seen by Provider: 03/24/24 12:21 Source: patient Mode of arrival: ambulatory Limitations: no limitations History of Present Illness: 23-year-old female [place] fell she hit her head on a concrete table states since then she has had headache and she has had vomiting today headaches currently 3 out of 10 she denies any LOC last night denies any neck pain denies any other injuries. Associated symptoms: Reports nausea; Deny chest pain, fever(s) or vomiting Review of Systems Const: Denies: fever(s), chills, body aches or change in appetite Eyes: Denies: blurry vision or eye discomfort ENMT: Denies: throat pain or dental pain Card: Denies: chest pain Resp: Denies: dyspnea GI: Reports: nausea; Denies: abdominal pain, vomiting or diarrhea Musc: Denies: neck pain or back pain Neuro: Reports: headache(s) PFSH ED PFSH: Medical History Urolithiasis Multi stone former. Major depressive disorder, recurrent, moderate Generalized anxiety disorder Post-traumatic stress disorder, unspecified Psychiatric care Recurrent UTI No pertinent past medical history Surgical History No pertinent past surgical history Family History Father Diabetes Hypertension Lung disease Sister PCOS (polycystic ovarian syndrome) Social History Smoking and tobacco/nicotine status: current every day tobacco/nicotine user cigarettes Packs smoked per day: 5 Years cigarettes smoked: 2 and e-cigarettes E-Cigarette Details: e-cigarette and with nicotine E-cig/vape details: takes a month to go through a pod Quit status (tobacco/nicotine): considering quitting Second hand smoke exposure: Yes Alcohol intake: current Alcohol intake frequency: few times a month Alcohol type: hard liquor Substance/Drug Use: current Substance/Drug use frequency: daily Adopted: No Caregiver/support person: No Lives independently: Yes Household members: significant other Housing: Apartment Marital status: Single Number of children: 0 Highest education level completed: 12th Grade, No Diploma service: No Current occupational status: unemployed Current occupational exposures/hazards: No Pets and animals: Yes Pets & animals: dog(s) Leisure activites: art, music, reading and other Leisure activities details: social media Sexually active: Yes Do you think of yourself as: Bisexual Current gender identity: Genderqueer- Neither Male or Female Shelby/Jehovah'S Witness: Roman Special shelby needs: No Agree to transfusion: Yes Female Reproductive History: Spontaneous abortions: No Physical Exam Const: COMMON NORMALS: no acute distress, patient oriented x3 and healthy appearing HENMT: COMMON NORMALS: normocephalic and atraumatic HEAD & SCALP: normocephalic and atraumatic Eye: COMMON NORMALS: Equal, round and reactive pupils present and EOMs intact bilaterally PUPIL: Yes Equal, round and reactive pupils present Neck/C-Spine: COMMON NORMALS: full ROM and supple Chest: COMMONS NORMALS: normal inspection of the chest Resp: COMMON NORMALS: normal respiratory effort Extremity: COMMON NORMALS: normal to inspection and full ROM Neuro: COMMON NORMALS: patient oriented x3, moves all extremities and no focal motor deficits Psych: COMMON NORMALS: mental status grossly normal, Normal thought process present and cooperative THOUGHT PROCESS: Normal thought process present Skin: COMMON NORMALS: no rashes or lesions noted and no wounds GENERAL SKIN EXAM: no rashes or lesions noted Course Vital Signs: Vital signs: Vital Signs Temperature 98.0 F 03/24/24 11:13 Pulse Rate 70 03/24/24 11:13 Respiratory Rate 16 03/24/24 12:32 Blood Pressure 116/68 03/24/24 12:32 Pulse Oximetry 98 03/24/24 11:13 Oxygen Delivery Me thod Room Air 03/24/24 11:13 MDM - Headache Medical Decision Making Patient presents with a closed head injury head CT is normal she is well-appearing here she stable for discharge she is follow-up with her PCP and return if worsening Medical Records I reviewed the patient's medical records. Lab Data Radiology Impressions Head CT 03/24/24 12:25 IMPRESSION: Negative head CT. All radiology interpretation(s) finalized by discharge Discharge Plan Discharge Patient Disposition: Home Clinical Impression: Closed head injury Condition: Stable Prescriptions: No Action ondansetron 4 mg tablet,disintegrating 4 mg PO Q6H PRN (Reason: nausea and vomiting) Qty: 10 0RF fluoxetine 20 mg capsule 20 mg PO DAILY 30 Days Qty: 30 2RF hydroxyzine pamoate 25 mg capsule 50 mg PO Q6H PRN (Reason: Anxiety) 30 Days Qty: 120 2RF buspirone 10 mg tablet 15 mg PO BID 30 Days Qty: 90 2RF ibuprofen 800 mg tablet 800 mg PO TID Qty: 30 0RF Discharge Orders: Discharge ED (Routine); Ordered 03/24/24 Ordered By: Dago Woodall Referrals: Loretta Paredes FNP [Primary Care Provider] - 4-7 days Discharge Diet: Advance as tolerated Discharge Activity: Resume usual activity Patient Instructions: Head Injury (ED) Stand Alone Forms: Work/School Release Coding Level of Care Code 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
[2024-03-24 12:32] VITALS: BP 116/68; RESP 16
[2024-03-24] MEDS: ondansetron 4 MG Tablet PO (12:51)
[2024-03-24 14:00] VITALS: BP 116/68; PULSE 70; RESP 16; TEMP 36.7; O2SAT 98
== END 2024-03-24 14:01 | disposition home or self-care (01) ==
PROVIDERS: Emergency Provider Emergency Medicine; PCP Nurse Practitioner Family
DX: S09.8XXA Other specified injuries of head, initial encounter (principal); F17.210 Nicotine dependence, cigarettes, uncomplicated; F17.290 Nicotine dependence, other tobacco product, uncomplicated; W01.190A Fall on same level from slipping, tripping and stumbling with subsequent striking against furniture, initial encounter; Y92.828 Other wilderness area as the place of occurrence of the external cause
CPT/HCPCS: 70450; 99284; Q0162

== ENCOUNTER 2024-10-02 15:05 | Emergency (ER) | payer OTHER, MEDICAID, SELFPAY ==
[2023-09-08 16:53] VITALS: BP 112/65; BMI 28.9
[2024-10-02 15:10] VITALS: BP 117/81; PULSE 77; RESP 16; TEMP 36.8; O2SAT 98
--- NOTE | 2024-10-02 15:26 | W.ED.FEMALGU ---
HPI - Female Genitourinary General: Chief complaint: Urogenital-Female Stated complaint: urinated blood Time Seen by Provider: 10/02/24 15:12 History of Present Illness: Hortensia Sauceda is a 22-year-old female that presents to the emergency department with hematuria. Patient reports long history of renal stones. Had passed a stone last month. In last year she had a very large stone that worked prior to lithotripsy and stenting. Patient reports onset of mild bilateral flank pain at approximately 1200 today. Developed hematuria. Patient denies fever chills nausea vomiting. Related Data Previous Rx's Medication Instructions Recorded buspirone 10 mg tablet 15 mg (1.5 x 10 mg) PO BID 30 days 01/13/23 #90 tabs fluoxetine 20 mg capsule 20 mg PO DAILY 30 days #30 caps 01/13/23 hydroxyzine pamoate 25 mg capsule 50 mg (2 x 25 mg) PO Q6H PRN 01/13/23 Anxiety 30 days #120 caps ibuprofen 800 mg tablet 800 mg PO TID #30 tabs 09/13/23 ondansetron 4 mg disintegrating 4 mg PO Q6H PRN nausea and 01/21/24 tablet vomiting #10 tabs ketorolac 10 mg tablet 10 mg PO TID 3 days #9 tabs 10/02/24 ondansetron 4 mg disintegrating 4 mg PO Q8H 5 days #15 tabs 10/02/24 tablet Allergies Allergy/AdvReac Type Severity Reaction Status Date / Time kale Allergy Intermediate ALGY-Difficulty Verified 10/02/24 15:14 Swallowing Review of Systems General: Reports: 10 or more systems reviewed and unremarkable except in HPI and below : Reports: flank pain, urinary urgency, hematuria and irregular period PFSH ED PFSH: Medical History Urolithiasis Multi stone former. Major depressive disorder, recurrent, moderate Generalized anxiety disorder Post-traumatic stress disorder, unspecified Psychiatric care Recurrent UTI No pertinent past medical history Surgical History No pertinent past surgical history Family History Father Diabetes Hypertension Lung disease Sister PCOS (polycystic ovarian syndrome) Social History Smoking and tobacco/nicotine status: current every day tobacco/nicotine user cigarettes Packs smoked per day: 5 Years cigarettes smoked: 2 and e-cigarettes E-Cigarette Details: e-cigarette and with nicotine E-cig/vape details: takes a month to go through a pod Quit status (tobacco/nicotine): considering quitting Second hand smoke exposure: Yes Alcohol intake: current Alcohol intake frequency: few times a month Alcohol type: hard liquor Substance/Drug Use: current Substance/Drug use frequency: daily Adopted: No Caregiver/support person: No Lives independently: Yes Household members: significant other Housing: Apartment Marital status: Single Number of children: 0 Highest education level completed: 12th Grade, No Diploma service: No Current occupational status: unemployed Current occupational exposures/hazards: No Pets and animals: Yes Pets & animals: dog(s) Leisure activites: art, music, reading and other Leisure activities details: social media Sexually active: Yes Do you think of yourself as: Bisexual Current gender identity: Genderqueer- Neither Male or Female Shelby/Adventism: Roman Special shelby needs: No Agree to transfusion: Yes Female Reproductive History: Spontaneous abortions: No Physical Exam Const: COMMON NORMALS: no acute distress, patient oriented x3 and healthy appearing HENMT: COMMON NORMALS: normocephalic and atraumatic HEAD & SCALP: normocephalic and atraumatic Eye: COMMON NORMALS: Equal, round and reactive pupils present and EOMs intact bilaterally PUPIL: Yes Equal, round and reactive pupils present Neck/C-Spine: COMMON NORMALS: full ROM and supple Chest: COMMONS NORMALS: normal inspection of the chest Resp: COMMON NORMALS: normal respiratory effort Extremity: COMMON NORMALS: normal to inspection and full ROM Neuro: COMMON NORMALS: patient oriented x3, moves all extremities and no focal motor deficits Psych: COMMON NORMALS: mental status grossly normal, Normal thought process present and cooperative THOUGHT PROCESS: Normal thought process present Skin: COMMON NORMALS: no rashes or lesions noted and no wounds GENERAL SKIN EXAM: no rashes or lesions noted Course Vital Signs: Vital signs: Vital Signs Temperature 98.2 F 10/02/24 15:10 Pulse Rate 77 10/02/24 15:10 Respiratory Rate 16 10/02/24 15:10 Blood Pressure 117/81 10/02/24 15:10 Pulse Oximetry 98 10/02/24 15:10 Oxygen Delivery Me thod Room Air 10/02/24 15:10 MDM - Female Medical Decision Making Differential diagnosis includes urinary tract infection, kidney stone, pyelonephritis, abdominal pain. Patient underwent laboratory and diagnostic evaluation. Due to the frequency of renal stones, a CT abdomen pelvis per renal protocol was completed. The urinalysis not reveal any elevation in white blood cells but did show protein blood and red blood cells in her urine. She has no systemic leukocytosis or anemias. Unfortunately after 2+ hours, the results are still not back from virtual radiology and patient needed to leave to get home safely. She requested medications and I provided her with Toradol and Zofran p.o. Patient is going to review the patient portal for results. She is going to strain all urine. Lab Data Laboratory Results HCG, Qual Negative (Negative) 10/02/24 15:42 Urine Color Yellow (Yellow) 10/02/24 15:42 Urine Appearance Clear (CLEAR) 10/02/24 15:42 Urine pH 5.5 (5-7) 10/02/24 15:42 Ur Specific [place] 1.010 (1.005-1.030) 10/02/24 15:42 Urine Protein Trace (Negative) A 10/02/24 15:42 Urine Glucose (UA) Negative (Normal) 10/02/24 15:42 Urine Ketones 1+ (Negative) H 10/02/24 15:42 Urine Blood 3+ (Negative) A 10/02/24 15:42 Urine Nitrate Negative (Negative) 10/02/24 15:42 Urine Bilirubin Negative (Negative) 10/02/24 15:42 Urine Urobilinogen 0.2 mg/dL (Negative) 10/02/24 15:42 Ur Leukocyte Esterase Negative (Negative) 10/02/24 15:42 Urine RBC >100 /hpf (0-2) H 10/02/24 15:42 Urine WBC 0-5 /hpf (0-5) 10/02/24 15:42 Ur Squamous Epith Cells 0-5 /hpf (0-5) 10/02/24 15:42 Amorphous Sediment Not Reportable 10/02/24 15:42 Urine Bacteria None seen /hpf (NONE) 10/02/24 15:42 Hyaline Casts 0-4 /lpf H 10/02/24 15:42 XR interpretation done by ED provider, pending radiology final review Discharge Plan Discharge Patient Disposition: Home Clinical Impression: Abdominal pain Condition: Stable Prescriptions: New ketorolac 10 mg tablet 10 mg PO TID 3 Days Qty: 9 0RF Rx Instructions: Do not take ibuprofen or other nonsteroidal anti-inflammatory drugs while taking ketorolac. ondansetron 4 mg tablet,disintegrating 4 mg PO Q8H 5 Days Qty: 15 0RF No Action ondansetron 4 mg tablet,disintegrating 4 mg PO Q6H PRN (Reason: nausea and vomiting) Qty: 10 0RF fluoxetine 20 mg capsule 20 mg PO DAILY 30 Days Qty: 30 2RF hydroxyzine pamoate 25 mg capsule 50 mg PO Q6H PRN (Reason: Anxiety) 30 Days Qty: 120 2RF buspirone 10 mg tablet 15 mg PO BID 30 Days Qty: 90 2RF ibuprofen 800 mg tablet 800 mg PO TID Qty: 30 0RF Discharge Orders: Discharge ED (Routine); Ordered 10/02/24 Ordered By: Adelso Sheridan Referrals: Loretta Paredes FNP [Primary Care Provider] - Discharge Diet: Advance as tolerated Discharge Activity: Resume usual activity Patient Instructions: Abdominal Pain (ED), Opioid Safety, Pain Management Activity Restrictions/Additional Instructions: Please strain all urine. Please review the [facility] patient portal for your CT results. I provided you with ketorolac and Zofran. This will help with pain and nausea. 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
[2024-10-02 15:57] LABS: HCG Qualitative Urine. Negative (Negative)
[2024-10-02 16:02] LABS: Bilirubin Urine Negative (Negative); Blood Urine 3+ (Negative); Glucose Urine UA Negative (Normal); Ketones Urine 1+ (Negative); Leukocyte Esterase Urine Negative (Negative); Nitrate Urine Negative (Negative); Protein Urine Trace (Negative); Urine Appearance Clear (CLEAR); Urine Color Yellow (Yellow); Urobilinogen Urine 0.2 mg/dL (Negative); pH Urine 5.5 (5-7)
[2024-10-02 16:07] LABS: Add Urine Microscopic? YES; Bacteria Urine None Seen /hpf; Hyaline Casts Urine 0-4 /lpf; RBC Urine >100 /hpf (0-2); Squamous Epithelial Cell Urine 0-5 /hpf (0-5); WBC Urine 0-5 /hpf (0-5)
[2024-10-02 16:08] LABS: Add Urine Culture? Yes
--- NOTE | 2024-10-02 16:14 | CTR_ITS ---
PROCEDURE INFORMATION: Exam: CT Abdomen And Pelvis Without Contrast Exam date and time: 10/02/2024 4:32 PM Age: 24 years old Clinical indication: Abdominal pain; Flank; Lower; Prior surgery; Surgery date: 6+ months; Surgery type: Stent; Additional info: Pain and hematuria TECHNIQUE: Imaging protocol: Computed tomography of the abdomen and pelvis without contrast. Radiation optimization: All CT scans at this facility use at least one of these dose optimization techniques: automated exposure control; mA and/or kV adjustment per patient size (includes targeted exams where dose is matched to clinical indication); or iterative reconstruction. COMPARISON: CT kidney stone [id number] 09/13/2023 2:23 PM RADIATION DOSE METRICS: Total DLP (mGy-cm): 424.23 FINDINGS: Liver: Normal. No mass. Gallbladder and biliary ducts: Normal. No calcified stones. No ductal dilation. Pancreas: Normal. No ductal dilation. Spleen: Normal. No splenomegaly. Adrenal glands: Normal. No mass. Kidneys and ureters: 3 mm calculus in the distal right ureter on series 4, image 157. Minimal adjacent periureteral fat stranding. 2 mm nonobstructing calculus in the left lower pole calyx. No hydronephrosis. Stomach and bowel: Unremarkable. No obstruction. No mucosal thickening. Appendix: No evidence of appendicitis. Intraperitoneal space: Unremarkable. No free air. No significant fluid collection. Vasculature: Unremarkable. No abdominal aortic aneurysm. Lymph nodes: Unremarkable. No enlarged lymph nodes. Urinary bladder: Unremarkable as visualized. Reproductive: Unremarkable as visualized. Bones/joints: Unremarkable. No acute fracture. Soft tissues: Unremarkable. CT/CT kidney stone [id number] IMPRESSION: 1. 3 mm calculus in the distal right ureter with mild associated inflammatory changes. 2. Punctate nonobstructing left nephrolithiasis.
[2024-10-02 17:52] VITALS: BP 115/83; PULSE 71; RESP 16; O2SAT 99
== END 2024-10-02 17:47 | disposition home or self-care (01) ==
PROVIDERS: Emergency Medicine; Emergency Provider Nurse Practitioner; PCP Nurse Practitioner Family
DX: R10.9 Unspecified abdominal pain (principal); F17.290 Nicotine dependence, other tobacco product, uncomplicated
CPT/HCPCS: 74176; 81001; 81025; 87086; 99284

== ENCOUNTER 2024-10-03 07:29 | Emergency (ER) | payer OTHER, MEDICAID, SELFPAY ==
[2023-09-08 16:53] VITALS: BP 112/65; BMI 28.9
[2024-10-03 07:39] VITALS: BP 111/72; PULSE 70; RESP 16; TEMP 36.6; O2SAT 100; BMI 31.1
[2024-10-03] MEDS: morphine 4 mg/mL SDV 1 mL IVP (07:51)
[2024-10-03] MEDS: ketorolac 30 mg/mL INJ IVP (07:52)
[2024-10-03] MEDS: ondansetron 2 mg/ML SDV 2 mL 4 MG IVP (07:52)
[2024-10-03 07:56] LABS: Basophils % 0.2 %; Eosinophils # 0.1 10^3/uL (0.0-0.8); Eosinophils % 1.1 %; Hematocrit 39.8 % (36-47); Lymphocytes # 1.4 10^3/uL (0.8-4.8); Lymphocytes % 20.9 %; Mean Corpuscular HGB Conc 33.7 g/dL (30-55); Mean Corpuscular Hemoglobin 29.2 pg (27-33); Mean Corpuscular Volume 86.7 fl (85-98); Mean Platelet Volume 8.8 fL (7.4-10.4); Monocytes # 0.5 10^3/uL (0.2-0.9); Monocytes % 7.2 %; Neutrophils % 70.4 %; Nucleated Red Blood Cells % 0 %; Platelet Count 304 10^3/cmm (157-399); Red Blood Count 4.59 10^6/uL (3.85-5.65); Red Cell Distribution Width 12.7 % (12.1-15.1); White Blood Count 6.66 10^3/uL (3.29-11.43)
--- NOTE | 2024-10-03 07:59 | W.ED.FEMALGU ---
HPI - Female Genitourinary General: Chief complaint: Urogenital-Female Stated complaint: urinating blood, pain in lower abd Time Seen by Provider: 10/03/24 07:41 Source: patient Mode of arrival: ambulatory Limitations: no limitations History of Present Illness: 24-year-old female who states has been having urinary pain and abdominal pain along with hematuria she was diagnosed with a 3 mm kidney stone yesterday states she has not passed it rates her pain a 6 out of 10 currently denies any vomiting or diarrhea. Associated symptoms: Reports abdominal pain; Deny headache(s) or nausea Related Data Previous Rx's Medication Instructions Recorded buspirone 10 mg tablet 15 mg (1.5 x 10 mg) PO BID 30 days 01/13/23 #90 tabs fluoxetine 20 mg capsule 20 mg PO DAILY 30 days #30 caps 01/13/23 hydroxyzine pamoate 25 mg capsule 50 mg (2 x 25 mg) PO Q6H PRN 01/13/23 Anxiety 30 days #120 caps ibuprofen 800 mg tablet 800 mg PO TID #30 tabs 09/13/23 ondansetron 4 mg disintegrating 4 mg PO Q6H PRN nausea and 01/21/24 tablet vomiting #10 tabs ketorolac 10 mg tablet 10 mg PO TID 3 days #9 tabs 10/02/24 ondansetron 4 mg disintegrating 4 mg PO Q8H 5 days #15 tabs 10/02/24 tablet Allergies Allergy/AdvReac Type Severity Reaction Status Date / Time kale Allergy Intermediate ALGY-Difficulty Verified 10/02/24 15:14 Swallowing Review of Systems Const: Denies: fever(s), chills, body aches or change in appetite ENMT: Denies: throat pain or dental pain Card: Denies: chest pain Resp: Denies: dyspnea GI: Reports: abdominal pain; Denies: nausea, vomiting or diarrhea : Reports: dysuria Musc: Denies: neck pain or back pain Skin/Breast: Denies: rash Neuro: Denies: headache(s) PFSH ED PFSH: Medical History Urolithiasis Multi stone former. Major depressive disorder, recurrent, moderate Generalized anxiety disorder Post-traumatic stress disorder, unspecified Psychiatric care Recurrent UTI No pertinent past medical history Surgical History No pertinent past surgical history Family History Father Diabetes Hypertension Lung disease Sister PCOS (polycystic ovarian syndrome) Social History Smoking and tobacco/nicotine status: current every day tobacco/nicotine user cigarettes Packs smoked per day: 5 Years cigarettes smoked: 2 and e-cigarettes E-Cigarette Details: e-cigarette and with nicotine E-cig/vape details: takes a month to go through a pod Quit status (tobacco/nicotine): considering quitting Second hand smoke exposure: Yes Alcohol intake: current Alcohol intake frequency: few times a month Alcohol type: hard liquor Substance/Drug Use: current Substance/Drug use frequency: daily Adopted: No Caregiver/support person: No Lives independently: Yes Household members: significant other Housing: Apartment Marital status: Single Number of children: 0 Highest education level completed: 12th Grade, No Diploma service: No Current occupational status: unemployed Current occupational exposures/hazards: No Pets and animals: Yes Pets & animals: dog(s) Leisure activites: art, music, reading and other Leisure activities details: social media Sexually active: Yes Do you think of yourself as: Bisexual Current gender identity: Genderqueer- Neither Male or Female [place]/Baptism: Roman Special shelby needs: No Agree to transfusion: Yes Female Reproductive History: Spontaneous abortions: No Physical Exam Const: COMMON NORMALS: no acute distress, patient oriented x3 and healthy appearing HENMT: COMMON NORMALS: normocephalic and atraumatic HEAD & SCALP: normocephalic and atraumatic Eye: COMMON NORMALS: conjunctivae normal CONJUNCTIVA: Yes conjunctivae normal Neck/C-Spine: COMMON NORMALS: full ROM and supple Chest: COMMONS NORMALS: normal inspection of the chest Resp: COMMON NORMALS: normal respiratory effort, No retractions, No use of accessory muscles and clear to auscultation bilaterally AUSCULTATION: clear to auscultation bilaterally Cardio: COMMON NORMALS: regular rate, regular rhythm and No murmurs present (Cardio) RATE: regular rate RHYTHM: regular rhythm GI: COMMON NORMALS: Normal to inspection, nondistended, normoactive bowel sounds present, Soft to palpation, non-tender and no masses PALPATION: Yes Soft to palpation Extremity: COMMON NORMALS: normal to inspection and full ROM Neuro: COMMON NORMALS: patient oriented x3, moves all extremities and no focal motor deficits Psych: COMMON NORMALS: mental status grossly normal, Normal thought process present and cooperative THOUGHT PROCESS: Normal thought process present Skin: COMMON NORMALS: no rashes or lesions noted and no wounds GENERAL SKIN EXAM: no rashes or lesions noted Course Vital Signs: Vital signs: Vital Signs Temperature 97.8 F 10/03/24 07:39 Pulse Rate 68 10/03/24 08:12 Respiratory Rate 16 10/03/24 08:12 Blood Pressure 103/62 10/03/24 08:12 Pulse Oximetry 100 10/03/24 08:12 Oxygen Delivery Me thod Room Air 10/03/24 08:12 MDM - Female Medical Decision Making Patient presents for kidney stone she has no signs of infected stone white counts normal no fever she did not fill her pain medication her pain here is much improved she is to follow-up with urology return if worsening she understands agrees to plan Medical Records I reviewed the patient's medical records. Lab Data I reviewed the patient's lab results. 10/03/24 07:50 10/03/24 07:50 Laboratory Results WBC 6.66 10^3/uL (3.29-11.43) 10/03/24 07:50 RBC 4.59 10^6/uL (3.85-5.65) 10/03/24 07:50 Hgb 13.40 g/dL (11.27-16.99) 10/03/24 07:50 Hct 39.8 % (36-47) 10/03/24 07:50 MCV 86.7 fl (85-98) 10/03/24 07:50 MCH 29.2 pg (27-33) 10/03/24 07:50 MCHC 33.7 g/dL (30-55) 10/03/24 07:50 RDW 12.7 % (12.1-15.1) 10/03/24 07:50 Plt Count 304 10^3/cmm (157-399) 10/03/24 07:50 MPV 8.8 fL (7.4-10.4) 10/03/24 07:50 Neut % (Auto) 70.4 % 10/03/24 07:50 Lymph % (Auto) 20.9 % 10/03/24 07:50 [place] % (Auto) 7.2 % 10/03/24 07:50 Eos % (Auto) 1.1 % 10/03/24 07:50 Baso % (Auto) 0.2 % 10/03/24 07:50 Neut # (Auto) 4.70 10^3/uL (1.8-7.7) 10/03/24 07:50 Lymph # (Auto) 1.4 10^3/uL (0.8-4.8) 10/03/24 07:50 [place] # (Auto) 0.5 10^3/uL (0.2-0.9) 10/03/24 07:50 Eos # (Auto) 0.1 10^3/uL (0.0-0.8) 10/03/24 07:50 Baso # (Auto) 0.0 10^3/uL (0.0-0.1) 10/03/24 07:50 Nucleated RBC % (auto) 0 % 10/03/24 07:50 Nucleated RBCs # 0.0 /100WBC 10/03/24 07:50 Sodium 134 mmol/L (136-145) L 10/03/24 07:50 Potassium 4.3 mmol/L (3.5-5.1) 10/03/24 07:50 Chloride 101 mmol/L (98-107) 10/03/24 07:50 Carbon Dioxide 20 mmol/L (22-29) L 10/03/24 07:50 Anion Gap 17.3 (5-19) 10/03/24 07:50 BUN 13 mg/dL (6-20) 10/03/24 07:50 Creatinine 0.7 mg/dL (0.5-0.9) 10/03/24 07:50 GFR Calculation 104.6 mL/min (90-130) 10/03/24 07:50 Glucose 80 mg/dL (65-115) 10/03/24 07:50 Calculated Osmolality 277 mOsm/kg (285-295) L 10/03/24 07:50 Calcium 9.1 mg/dL (8.5-10.5) 10/03/24 07:50 Total Bilirubin 0.6 mg/dL (0.15-1.2) 10/03/24 07:50 AST 13 U/L (0-32) 10/03/24 07:50 ALT 10 U/L (0-33) 10/03/24 07:50 Alkaline Phosphatase 83 U/L (35-105) 10/03/24 07:50 Total Protein 7.0 g/dL (6.6-8.7) 10/03/24 07:50 Albumin 4.3 g/dL (3.5-5.2) 10/03/24 07:50 Globulin 2.7 g/dL (1.3-4.6) 10/03/24 07:50 Urine Color Yellow (Yellow) 10/03/24 08:05 Urine Appearance Clear (CLEAR) 10/03/24 08:05 Urine pH 5.5 (5-7) 10/03/24 08:05 Ur Specific [place] 1.023 (1.005-1.030) 10/03/24 08:05 Urine Protein 1+ (Negative) A 10/03/24 08:05 Urine Glucose (UA) Negative (Normal) 10/03/24 08:05 Urine Ketones 3+ (Negative) H 10/03/24 08:05 Urine Blood 3+ (Negative) A 10/03/24 08:05 Urine Nitrate Negative (Negative) 10/03/24 08:05 Urine Bilirubin Negative (Negative) 10/03/24 08:05 Urine Urobilinogen 1.0 mg/dL (Negative) 10/03/24 08:05 Ur Leukocyte Esterase Negative (Negative) 10/03/24 08:05 Urine RBC >100 /hpf (0-2) H 10/03/24 08:05 Urine WBC 55-80 /hpf (0-5) H 10/03/24 08:05 Ur Squamous Epith Cells 0-4 /hpf (0-5) H 10/03/24 08:05 Amorphous Sediment Not Reportable 10/03/24 08:05 Urine Bacteria 2+ /hpf (NONE) H 10/03/24 08:05 Hyaline Casts 5-10 /lpf H 10/03/24 08:05 Urine Mucus 1+ /hpf 10/03/24 08:05 No radiology studies performed this visit Discharge Plan Discharge Patient Disposition: Home Clinical Impression: Urolithiasis Condition: Stable Prescriptions: No Action ondansetron 4 mg tablet,disintegrating 4 mg PO Q6H PRN (Reason: nausea and vomiting) Qty: 10 0RF fluoxetine 20 mg capsule 20 mg PO DAILY 30 Days Qty: 30 2RF hydroxyzine pamoate 25 mg capsule 50 mg PO Q6H PRN (Reason: Anxiety) 30 Days Qty: 120 2RF buspirone 10 mg tablet 15 mg PO BID 30 Days Qty: 90 2RF ibuprofen 800 mg tablet 800 mg PO TID Qty: 30 0RF ketorolac 10 mg tablet 10 mg PO TID 3 Days Qty: 9 0RF Rx Instructions: Do not take ibuprofen or other nonsteroidal anti-inflammatory drugs while taking ketorolac. ondansetron 4 mg tablet,disintegrating 4 mg PO Q8H 5 Days Qty: 15 0RF Discharge Orders: Discharge ED (Routine); Ordered 10/03/24 Ordered By: Dago Woodall Referrals: Loretta Paredes FNP [Primary Care Provider] - Discharge Diet: Advance as tolerated Discharge Activity: Resume usual activity Patient Instructions: Kidney Stones (ED), Opioid Safety Coding Level of Care Code ED Coater Associate for Maxine Marrufo
[2024-10-03 08:12] VITALS: BP 103/62; PULSE 68; RESP 16; O2SAT 100
[2024-10-03 08:14] LABS: Alanine Aminotransferase 10 U/L (0-33); Albumin Level 4.3 g/dL (3.5-5.2); Alkaline Phosphatase 83 U/L (35-105); Anion Gap 17.3 (5-19); Aspartate Amino Transferase 13 U/L (0-32); Blood Urea Nitrogen 13 mg/dL (6-20); Calcium 9.1 mg/dL (8.5-10.5); Carbon Dioxide 20 mmol/L (22-29); Chloride 101 mmol/L (98-107); Creatinine Clr Calc Pharmacy 121.2046; Globulin 2.7 g/dL (1.3-4.6); Glomerular Filtration Rate 104.6 mL/min (90-130); Glucose 80 mg/dL (65-115); Osmolality Calculated 277 mOsm/kg (285-295); Potassium 4.3 mmol/L (3.5-5.1); Sodium 134 mmol/L (136-145); Total Bilirubin 0.6 mg/dL (0.15-1.2)
[2024-10-03 08:28] LABS: Bilirubin Urine Negative (Negative); Blood Urine 3+ (Negative); Glucose Urine UA Negative (Normal); Ketones Urine 3+ (Negative); Leukocyte Esterase Urine Negative (Negative); Nitrate Urine Negative (Negative); Protein Urine 1+ (Negative); Specific Gravity, Urine 1.023 (1.005-1.030); Urine Appearance Clear (CLEAR); Urine Color Yellow (Yellow); pH Urine 5.5 (5-7)
[2024-10-03 08:32] LABS: Add Urine Microscopic? YES; Bacteria Urine 2+ /hpf; Mucus Urine 1+ /hpf; RBC Urine >100 /hpf (0-2); Squamous Epithelial Cell Urine 0-4 /hpf (0-5); UA Manual Slide Review YES; WBC Urine 55-80 /hpf (0-5)
[2024-10-03] MEDS: sodium chloride 0.9% 1,000 ML 999 ML IV (08:53)
[2024-10-03 10:25] VITALS: BP 92/47; PULSE 69; RESP 18; O2SAT 99
--- NOTE | 2024-10-05 08:06 | DCPLANNER ---
Referral for Urology Sent to [facility] for follow up-
== END 2024-10-03 10:26 | disposition home or self-care (01) ==
PROVIDERS: Emergency Provider Emergency Medicine; PCP Nurse Practitioner Family
DX: N20.9 Urinary calculus, unspecified (principal); F17.290 Nicotine dependence, other tobacco product, uncomplicated
CPT/HCPCS: 80053; 81001; 85025; 96374; 96375; 99284; J1885; J2270; J2405; J7030